=== PATIENT | male | born 1950 | race Caucasian/White ===

== ENCOUNTER 2017-09-02 18:29 | Emergency (ER) | payer OTHER ==
[~2017-09-02] VITALS: Ht 172.7 cm; Wt 65.8 kg
[2017-09-02 18:56] VITALS: BP_SYST 127
[2017-09-02 19:18] VITALS: BP_SYST 127
== END 2017-09-02 19:18 ==
LOC: SED 18:29
DX: S61.511A Laceration without foreign body of right wrist, initial encounter (principal); J44.9 Chronic obstructive pulmonary disease, unspecified; W45.8XXA Other foreign body or object entering through skin, initial encounter; Y93.89 Activity, other specified; Y92.89 Other specified places as the place of occurrence of the external cause; Y99.8 Other external cause status
CPT/HCPCS: 99283